=== PATIENT | male | born 1980 | race Caucasian/White ===

== ENCOUNTER 2022-05-11 12:30 | Outpatient (CLI) | payer BC ==
[~2022-05-11 12:30] MED LIST: Iopamidol 300 61% 100 ML VIAL FS ONE
== END 2022-05-11 12:31 | disposition home or self-care (01) ==
LOC: CSHCT 12:30
PROVIDERS: ATTEND Family Medicine
DX: R10.30 Lower abdominal pain, unspecified (principal); R10.9 Unspecified abdominal pain; N40.0 Benign prostatic hyperplasia without lower urinary tract symptoms; N49.0 Inflammatory disorders of seminal vesicle; K63.89 Other specified diseases of intestine
CPT/HCPCS: 74177; Q9967

== ENCOUNTER 2024-01-01 13:41 | Outpatient (CLI) | payer BC | END 2024-01-01 13:42 | disposition home or self-care (01) | LOC: CSHULT 13:41 | PROVIDERS: ATTEND Family Medicine | DX: R22.1 Localized swelling, mass and lump, neck (principal) | CPT/HCPCS: 76536 ==